=== PATIENT | female | born 1945 | race Caucasian/White ===

== ENCOUNTER 2025-03-18 14:39 | Emergency (ER) | payer MEDICARE, BC, SELFPAY ==
--- OUTSIDE RECORDS SUMMARY | 2014-12-10 12:12 | XMS_ITS | Continuity of Care Document ---
Author Organization [facility] Address [address] [place] [address] Phone Care Team Providers Care Crime Scene Photographer Name Role Phone Coppage STEEPING PRESS OPERATORCatrachita Unavailable Unavailable Allergies, Adverse Reactions, Alerts Substance Reaction Status Criticality codeine Active No Information levofloxacin Active No Information Medications Medication Instructions Dosage Effective Dates (start - stop) Status Comments Macrobid 100 mg capsule take 1 capsule by oral route every 12 hours with food 100 MG - Active omeprazole 40 mg capsule,delayed release take 1 capsule (40MG) by oral route every day before a meal 40 MG - Active Cymbalta 60 mg capsule,delayed release take 1 capsule by oral route every day 60 MG - Active Lyrica 150 mg capsule take 1 capsule by oral route 2 times every day 150 MG - Active iron 65 mg-vitamin C 125 mg tablet,delayed release - Active Calcium 500 + D (D3) 500 mg-125 unit tablet - Active Aspir-81 81 mg tablet,delayed release take 1 tablet (81MG) by oral route every day - Active Vitamin B-12 1,[address] 1 by Oral route every day 1 - Active Tylenol Ex Str Arthritis Pain 500 mg Tab take 2 tablet (1000MG) by oral route every 6 hours as needed - Active Vitamin B-1 100 mg Tab - Active Xanax 0.25 mg Tab take 1 tablet (0.25MG) by oral route 3 times every day 0.25 MG - Active As needed multivitamin Cap take 1 capsule by oral route every day - Active biotin 2,500 mcg tablet as needed - Active [place] 10 mg-325 mg tablet take 1 tablet by oral route every 4 - 6 hours as needed for pain - Active simvastatin 20 mg Tab take 1 tablet (20MG) by oral route every day in the evening 20 MG - Active MILLY (unknown strength) take 1 tablet by oral route every day Not Available - Active Procedures Procedure Date Urinalysis, non-automated, w/scope Office/outpatient visit,est, mod 2014 Most Recent Systolic BP W/in 12 Mos <130 mm Hg Most Recent Diastolic BP W/in <80 mm Hg Venipuncture Pneum vac adult,PNEUMOVAX Admin pneumococcal vaccine [place] screen;pelvic/breast exam Obtaining screen pap smear Stool For Occult Blood, Colorectal Scree percy Office/outpatient visit,est, mod 2013 Most Recent Systolic BP W/in 12 Mos <130 mm Hg Most Recent Diastolic BP W/in <80 mm Hg BODY MASS INDEX DOCD EKG, routine Venipuncture Office/outpatient visit,est, min 2012 Office/outpatient visit,est, mod 2012 Min One Rx Submitted Elec Using Qual Erx System INITITAL PREVENT EXAM Office/outpatient visit,est, mod 2012 Office/outpatient visit,est, mod 2011 Min One Rx Submitted Elec Using Qual Erx System Office/outpatient visit,est, mod 2011 Office/outpatient visit,est, mod 2011 Vitamin b12 injection Injection, Therapeutic Obtaining screen pap smear Stool For Occult Blood, Colorectal Scree percy Preventive checkup, est,40-64 yrs Office/outpatient visit,est, mod 2010 Venipuncture Electrocardiogram,complete (ECG) 2010 Office/outpatient visit,est, min 2010 Office/outpatient visit,est, mod 2010 Office/outpatient visit,est, mod 2010 Office/outpatient visit,new, low 2009 Pneum vac adult,PNEUMOVAX Immuniz admnin, 1 vac, sngl/combo Advance Directives Directive Yes / No Effective Date File Name No Information Encounters Encounter Description Practice Location Reason(s) For Visit Diagnoses Date Provider Providers Copied on Encounter [facility], [address], [place], [place], [id number] , tel:[phone] RM- Banning Rosa No Information 5 Coppage Catrachita. [address] [place], [facility], . tel:[phone] [facility], [address], [place], [id number] , tel:[phone] RM- Banning Rosa No Information 5 Coppage Catrachita. [address] [place], [address], . tel:[phone] Office/outpa tient visit,est, mod [facility], [address], [place], [place], [id number] , tel:[phone] [facility]- Banning Rosa uti (chief complaint)I ncontinence of urine (chief complaint)G ERD (chief complaint) Urinary tract infectionOther and unspecified hyperlipidemiaGER D / GASTROESOPHAGEAL REFLUX, NO ESOPHAGITISSCRN MALIG TIKA BREAST NOSHYPERTENSION, BENIGNChronic pain syndromeGlucosuri aUrinary incontinence 5 Coppage Catrachita. [facility] [place], [facility], . tel:[phone] Referring Provider: Camden Styles, [address], [address]. tel:[phone] [facility], [address] [place] [address], [id number] , tel:[phone] [facility]- Banning Rosa Blood Draw (chief complaint) HYPERLIPIDEMIA NEC/NOS 4 Coppage Catrachita. [address] [place], [place], [facility], . tel:[phone] Referring Provider: Camden Styles, [address] [place] [address], [facility]. [phone] Office/outpa tient visit,est, mod [facility], [address] [place] [address], [id number] , tel: [phone] [facility]- Banning Rosa WWE (chief complaint) Pneumonia VaccineSCREEN MALIG NEOP-CERVIXHYPERT ENSION, BENIGNDEPRESSIONH YPERLIPIDEMIA NEC/NOSSCREEN MALIG NEOP-CERVIXSCREEN MALIG NEOP-COLONSCRN MALIG TIKA BREAST NOSPneumonia VaccineOTH SPECIFIED EXAMBMI 28.0-28.9,ADULT Feb-0 4 Coppage Catrachita. [facility] [place], [place], [facility], . tel:[phone] Referring Provider: Camden Styles, [address] [place] [address], [facility]. tel:[phone] [facility], [address] [place] [address], [id number] , tel: [phone] [facility]- Banning Rosa No Information 3 Coppage Catrachita. [facility] [place], [address], . tel:[phone] Office/outpa tient visit,est, min [facility], [address], [place], [id number] , tel: [phone] [facility]- Banning Rosa Blood Draw (chief complaint)E KG (chief complaint) PREOP EXAM UNSPCF 3 Coppage Catrachita. [address] [place], [place], [facility], . tel:[phone] Referring Provider: Camden Styles, [address] [place] [address], [address]. tel:[phone] Office/outpa tient visit,[facility], [facility], [address] [place] [address], [id number] , tel:[phone] [facility]- Banning Rosa Pre-op exam/refill s (chief complaint) GERD / GASTROESOPHAGEAL REFLUX, NO ESOPHAGITISHYPERT ENSION, BENIGNFIBROMYALGI A NOS / MYOSITIS NOS / INTERCOSTAL MYOSITISPREOP EXAM UNSPCFRight leg pain 3 Coppage Catrachita. [facility] [place], [address], . tel:[phone] Referring Provider: Camden Styles, [address] [place] [address], [facility]. tel:[phone] [facility], [address] [place] [address], [id number] , tel:[phone] [facility]- Banning Rosa wwe w pap (chief complaint)o steoporosis (chief complaint) GYNECOLOGICAL EXAMHYPERTENSION, BENIGNHYPERLIPIDE ELEN NEC/NOSBariatric Surgery StatusGERD / GASTROESOPHAGEAL REFLUX, NO ESOPHAGITISDEPRES SIONScreening for colon cancerScreening for breast cancer 3 Coppaleslie Domínguez. [facility] [place], [address], . tel:[phone] Referring Provider: Camden Styles, [facility], [address]. tel:[phone] Office/outpa tient visit,[facility], [facility], [address] [place] [address], [id number] , [phone] R[facility]- Banning Rosa sinus symptoms (acute) (chief complaint) Viral upper respiratory illness 3 Coppage Catrachita. [facility] [place], [address], [place]. tel:[phone] Referring Provider: Camden Styles, [address] [facility], [place], [address]. tel:[phone] Office/outpa tient visit,[facility], [address] [place] [address], [id number] , [place] tel: [phone] [facility]- [place] Rash (chief complaint) RashHYPERTENSION, BENIGN Jun- 1-201 2 Ryan Lynch. [address], [place], [address], [place]. tel:[phone] Referring Provider: Cris Davis, [address], [place], [address]. tel:[phone] Office/outpa tient visit,[facility], [address] [place] [address], [id number] , [place] tel: [phone] [facility]- [place] PRE-OP (chief complaint) Pre-op exam January-3 0-201 2 Ryan Lynch. [address], [place], [address], [place]. tel:[phone] Office/outpa tient visit,[facility], [address] [place] [address], [id number] , [place] tel: [phone] RMDamon- [place] GERD (chief complaint)F ibromyalgia (chief complaint)h ypertension (chief complaint) GERD (gastroesophageal reflux disease)FIBROMYAL JUAN MIGUEL NOS / MYOSITIS NOS / INTERCOSTAL MYOSITISHYPERTENS ION, BENIGN Apr-2 5-201 2 Ryan Lynch. [address], [place], [address], [place]. tel:[phone] Preventive checkup, est,40-64 yrs [facility], [address], [place], [id number] , [place] tel: [phone] [facility]- [place] wwe (chief complaint) HYPERLIPIDEMIA NEC/NOSWell woman exam with routine gynecological examHx of gastric bypassFIBROMYALGI A NOS / MYOSITIS NOS / INTERCOSTAL MYOSITISObesitySC MIKE CABRERA NEOP-COLONDepress ion 2 Coppage Catrachita. [address] [place], [address], [place]. tel:[phone] Office/outpa tient visit,[facility], [facility], [address] [place] [address], [id number] , [place] tel: [phone] R[facility]- Banning Rosa No Information [address]. [address], [place], [address], [place]. tel:[phone] Referring Provider: Domingo Hathaway, [address], [place], [address]. tel:[phone] Office/outpa tient visit,est, [facility], [address] [place] [address], [id number] , [place] tel: [phone] R[facility]- Banning Rosa blood draw (chief complaint) No Information [address], [place], [address], [place]. tel:[phone] Office/outpa tient visit,est, [facility], [address] [place] [address], [id number] , [place] tel: [phone] [facility]- Banning Rosa medication review (chief complaint)o besity (chief complaint) Obesity (BMI 30.0-39.9)Fibromy algia 1 Copnomi Domínguez. [address] [place], [address], [place]. tel:[phone] Office/outpa tient visit,est, [facility], [address] [place] [address], [id number] , tel: [phone] [facility]- Banning Rosa No Information [address], [place], [address], [place]. tel:[phone] Office/outpa tient visit,[facility], [address], [place], [place], [id number] , [place] tel: [phone] [facility]- Harvey Lee No Information [address], [place], [address], [place]. tel:[phone] Family History Family Member Type Diagnosis Age At Onset Mother Problem (finding) CAD, DM, HTN Father Problem (finding) CAD, HTN, DM Immunizations Vaccine Date Status Comments Pneumo (2 yrs or older)(PPV) administered Source: New Immunization Record Influenza Vaccine administered Source: Ot her Provider Payers Payer name Insurance type Covered republican ID Authorjack bravo(s) Medicare [place] [id number] Social History Type Description Quantity Date Captured Comments Sex Female Smoking Status No Information Sexual Orientation Straight or heterosexual Chief Complaint And Reason For Visit No Information Reason For Referral Reason For Referral No Information Plan Of Treatment Date Type Action Status Goal Foot Exam. Due on 1 due Goal Foot Exam. Due on 3 due Goal Foot Exam. Due on 3 due Goal Foot Exam. Due on 3 due Future Order: Lab Order CBC(H/H, RBC,WBC,PLT) ([id number]), Collected on: Ordered Future Order: Lab Order BASIC ME TAB PNL ([id number]), Collected on: Ordered Future Order: Lab Order PTT, ACT IVATED ([id number]), Collected on: Ordered Future Order: Lab Order PRO TIME WITH INR ([id number]), Collected on: Ordered Future Order: Lab Order UA, REFL EX ([id number]), Collected on: Ordered Future Order: Lab Order HIV1/2 A B SCR W/RFLS ([id number]), Collected on: Ordered Future Order: Lab Order HEP C AB ([id number]), Collected on: Ordered History Of Present Illness Encounter Date Complaint History Of Prese nt Illness uti The severity of the problem is moderate. The problem has worsened. Presenting/Initial symptoms include burning and urgency. Associated symptoms include dribbling, dysuria, frequency, pressure and urgency. Pertinent negatives include abdominal pain, fatigue, fever, flank pain, hematuria, nausea, nocturia or pelvic pain. Incontinence of urine The sympto ms began 3 Months ago, have been mild and are unchanged. The patient complains of incontinence (without sensory awareness) occurring daily. There is urine leakage, 1 times per day. She does not complain of urinary frequency. She does not have pain. The patient is not experiencing urinary retention. There is a known history of urinary tract infections. She has had mid urethral polypropylene sling surgery. She also complains of dysuria and urinary frequency but denies fever, abdominal pain, nausea, back pain, flank pain, hematuria or nocturia. GERD Symptoms are not aggravated by alcohol. Pertinent negatives include constipation, fever, flank pain, hematuria and nausea.Additional information:Here for refill of omeprezole. Symptoms are controlled. Blood Draw Blood Draw (comments) WWE (comments) (comments) WWE Last Pap 2 year ago. Last Mammogram 10/11/2012. Last bone scane 2 years ago. Colonoscopy was done in 2011. States she had her flu vaccine Jun 2013. Needs pneumo vax Functional Status Date Functional Assessmen t No Information Instructions Date Instruction Additional Infor betzaida Keggal exercises dis cussed. Empty your bladder every 2 to 3 hours. Follow up if your symptoms persist. Related to Urinary incontinence Follow up with pain manangment. Lyrica renewed. 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 Follow up with cardiology as directed. Related to HYPERTENSION, BENIGN Await lab results. HgbA1c Ordere d Related to Glucosuria Get your fasting lab s drawn. Low fat, low cholesterol diet recommended. Related to Other and unspecified hyperlipidemia Omeprezole renewed. Take as directed. Lifestyle changes discussed. Related to GERD / GASTROESOPHAGEAL REFLUX, NO ESOPHAGITIS Referral for mammogram Related t o RUTH BURROWSIG TIKA BREAST NOS Start cipro 250 twic e daily for 5 days. Urine sent for UA and C&S. Drink plenty of fluids. Follow up in 2 days if not improving Related to Urinary tract infection Physical activity co unseling provided Related to Obesity Activity counseling provided Rel ated to BENIGN HYPERTENSION (HYPERTENSION, BENIGN) Dietary counseling provided Rela chapin to BENIGN HYPERTENSION (HYPERTENSION, BENIGN) Follow up with your psychiatrist Related to Depression Medication as directed Related t o FIBROMYALGIA NOS / MYOSITIS NOS / INTERCOSTAL MYOS Follow up with specialist Relate d to Hx of gastric bypass Assessments Type Assessment Date No Information Patient Care Teams Name Effective Dates (start - stop) Status Members No Information
[2025-03-18 14:43] VITALS: BP 165/79; PULSE 73; RESP 18; TEMP 36.8; O2SAT 99; BMI 31.8
--- NOTE | 2025-03-18 14:54 | ED_ITS ---
HPI - Extremity Injury (Upper) General: Chief Complaint: Extremity Injury, Upper Stated Complaint: lt arm inj Time Seen by Provider: 03/18/25 14:52 Source: patient Mode of arrival: ambulatory Limitations: no limitations History of Present Illness: Patient is a 80-year-old female presents to ED today for evaluation of her left elbow. She has chronic olecranon bursitis here. She states she chronically has decreased range of motion to the joint. Patient states she was using her arm to pull herself out of her wheelchair when she immediately felt pain to the elbow thus prompting her medical evaluation today. She has not noticed any edema apart from her known bursitis deformity. complaint: injury to: left and elbow Onset (ago): hour(s) Other Extremity Injury: Left: elbow Other injuries: none Place: home Severity: moderate Relieving factors: immobilization Exacerbating factors: movement of extremity Associated symptoms: Reports no associated symptoms Related Data Allergies Allergy/AdvReac Type Severity Reaction Status Date / Time No Known Allergies Allergy Verified 03/18/25 14:46 Review of Systems Const: Denies: fever(s) Card: Denies: chest pain Resp: Denies: dyspnea Musc: Reports: joint pain (L elbow) and limited range of motion (L elbow); Denies: extremity pain, extremity swelling, joint redness, joint warmth or joint stiffness Physical Exam Const: COMMON NORMALS: no acute distress, average body habitus, no limitations, healthy appearing, alert and well nourished GENERAL APPEARANCE: cooperative Extremity: COMMON NORMALS: capillary refill normal GENERAL: Yes normal exam except as noted LEFT UPPER EXTREMITY: Yes elbow joint (chronic olecranon bursitis) Left elbow: Yes palpation (pain in L AC space at side of distal bicep tendon insertion; no deformity), Yes ROM (limited due to pain) and Yes neurovascular exam (normal) Neuro: COMMON NORMALS: moves all extremities, no focal motor deficits and no sensory deficits noted SENSORIUM/ORIENTATION: Yes alert Course Vital Signs: Vital signs: Vital Signs Temperature 98.2 F 03/18/25 14:43 Pulse Rate 73 03/18/25 14:43 Respiratory Rate 18 03/18/25 14:43 Blood Pressure 165/79 03/18/25 14:43 Pulse Oximetry 99 03/18/25 14:43 Oxygen Delivery Me thod Room Air 03/18/25 14:43 MDM - Extremity Injury (Upper) Medical Decision Making XR showing possible chronic deformity of the radial head although she is clinically tender to this area. Other differential could be a bicep strain/sprain. Will place in a sling and have her follow-up with ortho. Medical Records I reviewed the patient's medical records. Lab Data Radiology Impressions Elbow X-Ray 03/18/25 15:04 IMPRESSION: No definite acute abnormality. Significant osteoarthritis of the elbow joint with presumed large fluid-filled olecranon bursa. All radiology interpretation(s) finalized by discharge Discharge Plan Discharge Patient Disposition: Home Clinical Impression: Olecranon bursitis of left elbow Injury of elbow, left Qualifiers: Encounter type: initial encounter Qualified Code(s): S59.902A - Unspecified injury of left elbow, initial encounter Condition: Stable Discharge Orders: Discharge ED (Routine); Ordered 03/18/25 Ordered By: Lina Abreu Patient Instructions: Opioid Safety, Pain Management, Patient Portal & Senia Instructions Activity Restrictions/Additional Instructions: As we discussed, case management should reach out to you later this week/early next week to help set you up with your follow-up orthopedic appointment for further evaluation of your elbow pain. You need to stay in your sling apart from showering or bathing until told otherwise by orthopedics. X-ray of your elbow showing slight deformity at your radial head although this was unknown whether it was new or old. You also have chronic olecranon bursitis of the elbow. Print Language: Mohawk Coding Level of Care Code ED Broadcasting Equipment Mechanic for Marely Hunter
--- NOTE | 2025-03-18 15:04 | XR_ITS ---
WS: [id number] XR elbow LT min 3V* [id number] REASON FOR EXAM: injury/pain; chronic olecranon bursitis FINDINGS: Large soft tissue mass posterior to the olecranon process which may represent a large fluid-filled olecranon bursa. There is deformity of the radial head compatible with old healed fracture. There is significant narrowing of the joint spaces of the elbow joint with moderate subchondral sclerosis and osteophytosis particularly of the coronoid and olecranon. No definite acute fracture. XR/XR elbow LT min 3V* [id number] IMPRESSION: No definite acute abnormality. Significant osteoarthritis of the elbow joint with presumed large fluid-filled olecranon bursa.
[2025-03-18] MEDS: morphine 4 mg/mL SDV 1 mL IM (15:54)
--- NOTE | 2025-03-19 07:13 | DCPLANNER ---
messaged ortho for er f/u
== END 2025-03-18 16:02 | disposition home or self-care (01) ==
PROVIDERS: Emergency Provider Physician Assistant
DX: M70.22 Olecranon bursitis, left elbow (principal); S59.902A Unspecified injury of left elbow, initial encounter
CPT/HCPCS: 73080; 96372; 99284; J2270

== ENCOUNTER → 2025-04-08 13:30 | Outpatient (BNVA) | payer MEDICARE, BC, SELFPAY | PROVIDERS: PCP Family Medicine; Visit Provider Family Medicine | DX: E55.9 Vitamin D deficiency, unspecified (principal); E11.9 Type 2 diabetes mellitus without complications; I10 Essential (primary) hypertension; N28.89 Other specified disorders of kidney and ureter; R79.89 Other specified abnormal findings of blood chemistry; F41.1 Generalized anxiety disorder; E78.2 Mixed hyperlipidemia | CPT/HCPCS: 80053; 80061; 82306; 82607; 83036; 83735; 84439; 84443; 85025 ==

== ENCOUNTER → 2025-04-09 10:58 | Outpatient (BNVA) | payer MEDICARE, BC, SELFPAY | PROVIDERS: PCP Family Medicine; Visit Provider Orthopaedic Surgery | DX: M25.522 Pain in left elbow (principal); M19.072 Primary osteoarthritis, left ankle and foot | CPT/HCPCS: 73080; 99204 ==